=== PATIENT | female | born 2000 | race Caucasian/White ===

== ENCOUNTER 2021-05-11 22:53 | Emergency (ER) | payer OTHER ==
[~2021-05-11] VITALS: Ht 167.6 cm; Wt 61.4 kg
[2021-05-11] MEDS ORDERED: NS 1,000 ML IV SCH (23:35)
--- NOTE | 2021-05-12 00:40 | REPVR ---
PROCEDURE INFORMATION: Exam: US Duplex Lower Extremity Veins, Bilateral Exam date and time: 05/11/2021 12:15 AM Age: 20 years old Clinical indication: Other: Chest pain; Additional info: chest pain eval for dvt TECHNIQUE: Imaging protocol: Real-time duplex ultrasound of the extremities with 2-D peters scale, color Doppler flow and spectral waveform analysis with image documentation. Complete exam focused on the bilateral lower extremity veins. COMPARISON: No relevant prior studies available. FINDINGS: Right deep veins: Unremarkable. The common femoral, femoral and popliteal veins are patent without thrombus. Normal Doppler waveforms. Normal compressibility and/or augmentation response. Right superficial veins: Saphenofemoral junction is patent without thrombus. Left deep veins: Unremarkable. The common femoral, femoral and popliteal veins are patent without thrombus. Normal Doppler waveforms. Normal compressibility and/or augmentation response. Left superficial veins: Saphenofemoral junction is patent without thrombus. Soft tissues: Unremarkable. IMPRESSION: No sonographic evidence of deep vein thrombosis. Electronically signed by: Serafin Fields On 05/12/2021 00:39:53 AM
[2021-05-12 01:00] LABS: BASO % 0.1 % (0.0-1.0); EOS # 0.1 10^3/uL (0.0-0.5); EOS % 0.6 % (0.0-3.0); HEMATOCRIT 28.8 % (36.0-47.0); HEMOGLOBIN 9.5 g/dl (12.0-15.5); LYMPH # 2.1 10^3/uL (1.5-5.0); LYMPH % 24.8 % (24.0-44.0); MEAN CORPUSCULAR HEMOGLOBIN 28.4 pg (27.0-33.0); MEAN CORPUSCULAR VOLUME 86.2 fl (80.0-96.0); MONO # 0.9 10^3/uL (0.0-0.8); MONO % 11.1 % (2.0-8.0); NEUTROPHILS # 5.2 10^3/uL (1.5-8.5); NEUTROPHILS % 62.8 % (36.0-66.0); PLATELET COUNT, AUTOMATED 232 10^3/uL (150-450); RED BLOOD COUNT 3.34 10^6/uL (4.00-5.40); WHITE BLOOD COUNT 8.3 10^3/uL (4.0-10.0)
[2021-05-12 01:33] LABS: ALBUMIN 2.3 GM/DL (3.2-5.2); ALT/SGPT 11 U/L (12-78); BILIRUBIN,DIRECT < 0.1 MG/DL (0.0-0.2); BILIRUBIN,TOTAL 0.2 MG/DL (0.2-1.0); BLOOD UREA NITROGEN 5 MG/DL (7-18); CALCIUM LEVEL 7.3 MG/DL (8.5-10.1); CARBON DIOXIDE LEVEL 22 MEQ/L (21-32); CHLORIDE LEVEL 110 MEQ/L (98-107); CK-MB VALUE MASS < 1.0 NG/ML (<3.6); CPK CREATINE PHOSPHOKINASE 44 U/L (26-192); CREATININE FOR GFR 0.48 MG/DL (0.55-1.30); FREE T4 0.79 NG/DL (0.76-1.46); GLOMERULAR FILTRATION RATE > 60.0 (>60); GLUCOSE, FASTING 102 MG/DL (70-100); LIPASE 118 U/L (73-393); MB/CK RELATIVE INDEX 2.27 (< OR =4); POTASSIUM SERUM 3.3 MEQ/L (3.5-5.1); SODIUM LEVEL 140 MEQ/L (136-145); TOTAL PROTEIN 5.5 GM/DL (6.4-8.2); TROPONIN I < 0.02 NG/ML (< 0.10)
[2021-05-12 03:15] VITALS: BP 102/57
[2021-05-12] MEDS ORDERED: ISOVUE-370 76% 100ML VIAL As Ordered ONE (03:25)
[2021-05-12] MEDS ORDERED: POTASSIUM CHLORIDE 10 MEQ SR TABLET PO ONE (03:30)
--- NOTE | 2021-05-12 04:41 | REPVR ---
PROCEDURE INFORMATION: Exam: CTA Chest With Contrast Exam date and time: 05/12/2021 3:21 AM Age: 20 years old Clinical indication: Shortness of breath; Additional info: Chest pain, SOB TECHNIQUE: Imaging protocol: Computed tomographic angiography of the chest with contrast. 3D rendering (Not supervised by radiologist): MIP and/or 3D reconstructed images were created by the technologist. Radiation optimization: All CT scans at this facility use at least one of these dose optimization techniques: automated exposure control; mA and/or kV adjustment per patient size (includes targeted exams where dose is matched to clinical indication); or iterative reconstruction. Contrast material: ISO; Contrast volume: 100 ml; Contrast route: INTRAVENOUS (IV); COMPARISON: No relevant prior studies available. FINDINGS: Pulmonary arteries: The pulmonary arteries are not enlarged. No filling defects are seen to indicate an acute pulmonary embolism. Aorta: There is no thoracic aortic aneurysm or evidence of dissection. Lungs: The lungs are clear. Pleural spaces: No pleural effusions or pneumothorax identified. Heart: The heart is normal in size. Lymph nodes: No lymphadenopathy is seen. Stomach and bowel: There is marked hyperdensity posteriorly within the dependent lumen of the fundus of the stomach which may represent very dense ingested material but could be intraluminal extravasation of IV contrast from active GI bleeding. There is a somewhat serpiginous appearance of the high density material along the lesser curvature of the fundus, which could be within prominent vessels or may be more of the same intraluminal dense material between gastric rugal folds. Bones/joints: No suspicious osseous lesions. No acute fractures. Soft tissues: Unremarkable. IMPRESSION: 1. No evidence of acute pulmonary embolism. 2. Clear lungs. 3. High density material at the fundus of the stomach. Please correlate with any recent p.o. administration of a high density substance or consider the possibility of active GI bleeding into the stomach. COMMENTS: THIS REPORT CONTAINS FINDINGS THAT MAY BE CRITICAL TO PATIENT CARE. The findings were verbally communicated via telephone conference with SUBHA SIMMS at 4:38 AM EDT on 05/12/2021. The findings were acknowledged and understood. Electronically signed by: Yanique Lowe On 05/12/2021 04:41:17 AM
--- NOTE | 2021-05-12 06:22 | ED PDOC ---
Post-Departure Follow-Up cta chest faxed to [facility] for fu Haider Ambriz MD May 12, 2021 06:21
--- NOTE | 2021-05-12 21:25 | ECGEPIP ---
[facility] - ED Test Date: 2021-05-12 Pat Name: MALU GREENFIELD Department: Room: - Gender: Female Emblem Cutter: SHONNA : 2000 Requested By: SUBHA Breen Order Number: [id number] Reading MD: Liliana Glass Measurements Intervals [place] Rate: 81 P: 20 KS: 142 QRS: 62 QRSD: 66 T: 12 QT: 390 QTc: 453 Interpretive Statements Normal sinus rhythm No prior Electronically Signed on 05-12-2021 21:25:30 EDT by Liliana Glass
== END 2021-05-12 05:40 | disposition home or self-care (01) ==
LOC: M ED 22:53 → EDBD 22:53 → M ED 05-12 05:40
DX: O99.413 Diseases of the circulatory system complicating pregnancy, third trimester (principal); Z3A.33 33 weeks gestation of pregnancy; O99.343 Other mental disorders complicating pregnancy, third trimester; Z88.6 Allergy status to analgesic agent
CPT/HCPCS: 71275; 80048; 80076; 82550; 82553; 83690; 84439; 84443; 85025; 85379; 93005; 93041; 93970; 94760; 96360; 96361; 99285; Q9967